=== PATIENT | female | born 2000 | race Caucasian/White ===

== ENCOUNTER 2024-10-10 20:09 | Emergency (ER) | payer OTHER ==
[~2024-10-10] VITALS: Ht 160 cm; Wt 79.4 kg
[2024-10-10] MEDS ORDERED: IBUP-1490 PO (21:08)
[2024-10-10 21:31] VITALS: BP 118/70; TEMP 98; O2SAT 95
== END 2024-10-10 21:31 | disposition home or self-care (01) ==
LOC: ER 20:13
DX: M79.642 Pain in left hand (principal); W22.01XA Walked into wall, initial encounter; Y93.89 Activity, other specified; Y92.89 Other specified places as the place of occurrence of the external cause; Y99.8 Other external cause status
CPT/HCPCS: 73130-TC